=== PATIENT | female | born 1990 | race Hispanic/Latino ===

== ENCOUNTER 2020-06-05 11:49 | Inpatient (IN) | payer MEDICAID, OTHER, SELFPAY ==
[~2020-06-05 11:49] MED LIST: Bupivacaine 0.25% HCL 30 ML VIAL ONE
[2020-06-05 20:46] VITALS: BMI 34.2
[2020-06-05] MEDS ORDERED: Lidocaine 1% (PF) 30 ML VIAL SC PRN (21:23)
[2020-06-05] MEDS ORDERED: Ondansetron PF 4 MG/2 ML Vial IVP PRN (21:23)
[2020-06-05] MEDS ORDERED: Diphenoxylate HCl/Atropine Tablet PO PRN (21:23)
[2020-06-05] MEDS ORDERED: HYDROcodone/Acetaminophen 5/325 mg Tablet PO PRN (21:23)
[2020-06-05] MEDS ORDERED: Misoprostol 200 MCG TAB PR PRN (21:23)
[2020-06-05] MEDS ORDERED: Butorphanol Tartrate 1 MG/ML VIAL SLOW IVP PRN (21:23)
[2020-06-05] MEDS ORDERED: Ibuprofen 800 MG TAB PO PRN (21:23)
[2020-06-05] MEDS ORDERED: Methylergonovine 0.2 MG/ML VIAL IM PRN (21:23)
[2020-06-05] MEDS ORDERED: Carboprost 250 MCG/ML AMP IM PRN (21:23)
[2020-06-05] MEDS ORDERED: Promethazine HCl 25 MG/ML VIAL IM PRN (21:23)
[2020-06-05] MEDS ORDERED: Acetaminophen 500 MG TAB PO PRN (21:23)
[2020-06-05] MEDS ORDERED: hydrALAZINE 20 MG/ML VIAL SLOW IVP PRN (21:23)
[2020-06-05] MEDS ORDERED: NS w/ Oxytocin 30 units 500 ML IV PRN (21:33)
[2020-06-05 21:42] LABS: Hemoglobin 10.9 g/dL (12.0-15.5); Mean Corpuscular HGB CONC 32.4 g/dL (32.0-36.0); Mean Corpuscular Hemoglobin 27.5 pg (27.0-33.0); Mean Corpuscular Volume 84.8 fl (81.6-98.3); Mean Platelet Volume 12.4 fl (7.4-10.4); Platelet Count 225 10x3/uL (150-450); RBC Distribution Width 14.2 % (11.5-14.5); Red Blood Cell (RBC) Count 3.96 10x6/uL (3.90-5.03); White Blood Cell (WBC) Count 6.4 10x3/uL (3.5-10.5)
[2020-06-05 22:14] LABS: Hep B Surf Ag Non-Reactive S/CO (NonReactive)
[2020-06-05 22:21] LABS: HBSAg Index 0.16 S/CO (0-0.99)
[2020-06-05 23:13] LABS: Syphilis Antibody Index 13.88 S/CO (<1.00 Non-Reactive)
[2020-06-05 23:14] LABS: Syphilis Antibody REACTIVE (Nonreactive)
[2020-06-06] MEDS: Misoprostol 100 MCG TAB PO SCH ×3 (02:05→16:00)
[2020-06-06] MEDS: Lactated Ringer's 1,000 ML IV SCH ×3 (02:12→16:00)
[2020-06-06] MEDS ORDERED: Fentanyl 4 mcg/Bup 0.1% Cadd 100 ML ONE (07:03)
[2020-06-06] MEDS ORDERED: NS / Oxytocin 40 units/1000ml 1,000 ML IV SCH (15:57)
[2020-06-06] MEDS ORDERED: Ondansetron PF 4 MG/2 ML Vial IVP PRN (15:57)
[2020-06-06] MEDS ORDERED: Benzocaine-Menthol 82.5 ML CAN TOP PRN (15:57)
[2020-06-06] MEDS ORDERED: Milk Of Magnesia 30 ML UDCUP PO PRN (15:57)
[2020-06-06] MEDS ORDERED: HYDROcodone/Acetaminophen 5/325 mg Tablet PO PRN (15:57)
[2020-06-06] MEDS ORDERED: hydrALAZINE 20 MG/ML VIAL SLOW IVP PRN (15:57)
[2020-06-06] MEDS ORDERED: Bisacodyl 10 MG SUPP PR PRN (15:57)
[2020-06-06] MEDS ORDERED: Adacel (T-DAP) 0.5 ML SYRINGE IM ONE (15:57)
[2020-06-06] MEDS ORDERED: diphenhydrAMINE 25 MG CAP PO PRN (15:57)
[2020-06-06] MEDS ORDERED: Promethazine HCl 25 MG/ML VIAL IM PRN (15:57)
[2020-06-06] MEDS ORDERED: Lanolin Ointment 7 GM TUBE TOP PRN (15:57)
[2020-06-06] MEDS: Ibuprofen 800 MG TAB PO SCH ×2 (16:38→23:02)
[2020-06-06] MEDS: Ferrous Sulfate 325 MG TAB PO SCH (17:45)
[2020-06-06] MEDS: HYDROcodone/Acetaminophen 5/325 mg Tablet PO PRN (20:20)
[2020-06-06] MEDS: Docusate Calcium (SURFAK) 240 MG CAP PO SCH (23:02)
[2020-06-07] MEDS: Ibuprofen 800 MG TAB PO SCH ×2 (06:09→13:15)
[2020-06-07] MEDS: Ferrous Sulfate 325 MG TAB PO SCH ×2 (07:58→14:50)
[2020-06-07] MEDS: HYDROcodone/Acetaminophen 5/325 mg Tablet PO PRN (07:59)
[2020-06-07] MEDS: Docusate Calcium (SURFAK) 240 MG CAP PO SCH (07:59)
[2020-06-07] MEDS ORDERED: Prenatal Vitamin 1 TAB PO SCH (09:00)
[2020-06-07 14:44] VITALS: BP 109/57; TEMP 97.7
== END 2020-06-07 15:10 | disposition home or self-care (01) | DRG 807 ==
LOC: CSHLD 19:38 → CSHPED 06-06 15:20 → EDSTATUS 06-07 19:15
PROVIDERS: ADMIT Family Medicine; ATTEND Family Medicine
PROC: 10E0XZZ Delivery of Products of Conception, External Approach (ICD-10-PCS; principal; 2020-06-06)
PROC: 10907ZC Drainage of Amniotic Fluid, Therapeutic from Products of Conception, Via Natural or Artificial Opening (ICD-10-PCS; 2020-06-06)
PROC: 3E0P7VZ Introduction of Hormone into Female Reproductive, Via Natural or Artificial Opening (ICD-10-PCS; 2020-06-06)
PROC: 3E033VJ Introduction of Other Hormone into Peripheral Vein, Percutaneous Approach (ICD-10-PCS; 2020-06-06)
DX: O98.52 Other viral diseases complicating childbirth (principal); Z37.0 Single live birth; B00.9 Herpesviral infection, unspecified; Z3A.39 39 weeks gestation of pregnancy; Z20.822 Contact with and (suspected) exposure to COVID-19
CPT/HCPCS: 51702; 85027; 86593; 86780; 86850; 86900; 86901; 87340; J0595; J2405; J2590; S0020